=== PATIENT | male | born 1965 | race Caucasian/White ===

== ENCOUNTER 2018-02-13 14:50 | Emergency (ER) | payer OTHER ==
[2018-02-13] MEDS ORDERED: Sodium Chloride 0.9% 1,000 ML IV STA (15:19)
[2018-02-13] MEDS ORDERED: Albuterol 0.083% Inhal Sol (2.5 mg/3 mL) UD INH STA (15:19)
[2018-02-13 15:25] VITALS: O2SAT 97
--- NOTE | 2018-02-13 15:45 | ED PDOC ---
Arrival/HPI - General Chief Complaint: Dizziness/Lightheaded Time Seen by Provider: 02/13/18 15:08 Historian: Patient - History of Present Illness Narrative History of Present Illness (Text): 02/13/18 15:21 52yo male with no pmhx who present with complaint of nonproductive cough x 3weeks. states he coughs so much that he gets dizzy and blurry for the past 3weeks. Also reports general malaise. States he symptoms became worse 2days ago. +chills. Denies fever, chest pain, SOB, diaphoresis, sick contact, travel, nausea, vomiting, diarrhea, any other complaint. Past Medical History - Provider Review Nursing Documentation Reviewed: Yes - Infectious Disease Hx of Infectious Diseases: None - Psychiatric Hx Substance Use: No - Anesthesia Hx Anesthesia: No Family/Social History - Physician Review Nursing Documentation Reviewed: Yes Family/Social History: Unknown Family HX Smoking Status: Unknown If Ever Smoked Hx Alcohol Use: No Hx Substance Use: No Allergies/Home Meds Allergies/Adverse Reactions: Allergies No Known Allergies Allergy (Verified 02/13/18 15:10) Review of Systems - Physician Review All systems were reviewed & negative as marked: Yes - Review of Systems Constitutional: Fatigue Eyes: Normal ENT: Normal Respiratory: Cough. absent: SOB, Sputum, Wheezing Cardiovascular: Normal Gastrointestinal: Normal Genitourinary Male: Normal Musculoskeletal: Normal Skin: Normal Neurological: Normal Endocrine: Normal Hemo/Lymphatic: Normal Psychiatric: Normal Physical Exam Vital Signs Reviewed: Yes Vital Signs Temp Pulse Resp BP Pulse Ox 02/13/18 18:12 100.0 F H 98 H 19 97 02/13/18 17:33 100.6 F H 02/13/18 16:23 100.6 F H 106 H 18 132/74 97 02/13/18 15:24 101 F H 117 H 18 136/84 97 02/13/18 15:07 101 F H 117 H 18 136/84 98 Temperature: Febrile Pulse: Tachycardic Respiratory Rate: Normal Appearance: Positive for: Well-Appearing, Non-Toxic, Comfortable Pain Distress: None Mental Status: Positive for: Alert and Oriented X 3 - Systems Exam Head: Present: Atraumatic, Normocephalic Pupils: Present: PERRL Extroacular Muscles: Present: EOMI Conjunctiva: Present: Normal Mouth: Present: Moist Mucous Membranes Neck: Present: Normal Range of Motion Respiratory/Chest: Present: Clear to Auscultation, Good Air Exchange. No: Respiratory Distress, Accessory Muscle Use, Wheezes, Decreased Breath Sounds, Rales, Retracting, Rhonchi Cardiovascular: Present: Regular Rate and Rhythm, Normal S1, S2. No: Murmurs Abdomen: No: Tenderness, Distention, Peritoneal Signs Back: Present: Normal Inspection Upper Extremity: Present: Normal Inspection. No: Cyanosis, Edema Lower Extremity: Present: Normal Inspection. No: Edema Neurological: Present: GCS=15, CN II-XII Intact, Speech Normal, Motor Func Grossly Intact, Normal Sensory Function, Normal Cerebellar Funct, Norm Deep Tendon Reflexes, Gait Normal, Memory Normal, Normal 2Pt Descrimination Skin: Present: Warm, Dry, Normal Color. No: Rashes Psychiatric: Present: Alert, Oriented x 3, Normal Insight, Normal Concentration Medical Decision Making ED Course and Treatment: 02/13/18 19:56 52yo male who present with complaint of cough, malaise, dizziness. He was febrile and tachy on arrival. He was hydrated and antipyretics given. On re evaluation his HR and temp improved. Lab was ordered and it was unremarkable EKG NSR @ 97bpm CXR IMPRESSION: Hypoinflation. Ill-defined faint opacity within the left mid lung zone peripherally; possibly infiltrate. Mild left basilar atelectasis/infiltrate. Secondary to the chest xray finding pt was placed on Levaquin. Result was DW pt . he was advised to take antipyretics every 6hrs as needed. antitussive given. Advised to drink plenty of fluid, rest and f/u with his PMD. TRT ED for any new or worsening symptoms. - Lab Interpretations Lab Results: 02/13/18 15:50 02/13/18 15:50 Lab Results 02/13/18 17:00: Urine Color Light yellow, Urine Appearance Clear, Urine pH 6.0, Ur Specific [place] 1.015, Urine Protein Negative, Urine Glucose (UA) Negative, Urine Ketones Negative, Urine Blood Small H, Urine Nitrate Negative, Urine Bilirubin Negative, Urine Urobilinogen 0.2, Ur Leukocyte Esterase Negative, Urine RBC 0 - 2, Urine WBC Negative, Ur Epithelial Cells None, Urine Bacteria Neg 02/13/18 15:50: Sodium 140, Potassium 3.8, Chloride 103, Carbon Dioxide 24, Anion Gap 17, BUN 19, Creatinine 0.9, Est GFR ( Amer) > 60, Est GFR (Non- Af Amer) > 60, Random Glucose 102, Calcium 9.5, Magnesium 1.7, Total Bilirubin 0.8, AST 24, ALT 38, Alkaline Phosphatase 66, Lactate Dehydrogenase 427, Total Creatine Kinase 51, Troponin I < 0.01, Total Protein 7.9, Albumin 4.4, Globulin 3.4, Albumin/Globulin Ratio 1.3 02/13/18 15:50: PT 13.5 H, INR 1.18, APTT 30.3 02/13/18 15:50: WBC 5.5, RBC 5.34, Hgb 16.3, Hct 46.1, MCV 86.3, MCH 30.5, MCHC 35.4, RDW 12.3, Plt Count 209, MPV 10.9, Gran % 68.9 H, Lymph % (Auto) 18.8 L, [place] % (Auto) 11.7 H, Eos % (Auto) 0.4 L, Baso % (Auto) 0.2, Gran # 3.78, Lymph # (Auto) 1.0 L, [place] # (Auto) 0.6, Eos # (Auto) 0.0, Baso # (Auto) 0.01 - RAD Interpretation Radiology Orders: 02/13/18 15:17 CHEST TWO VIEWS (PA/LAT) [RAD] Stat - Medication Orders Current Medication Orders: Discontinued Medications Acetaminophen (Tylenol 325mg Tab) 650 mg PO STAT STA Stop: 02/13/18 17:08 Last Admin: 02/13/18 17:33 Dose: 650 mg MAR Pain/Vitals Document 02/13/18 17:33 [email or web address] (Rec: 02/13/18 17:53 [email or web address] [id number]) Vitals Temperature (97.6 F-99.6 F) 100.6 F Temperature Source Oral Albuterol Sulfate (Albuterol 0.083% Inhal [place] (2.5 Mg/3 Ml) Ud) 2.5 mg INH STAT STA Stop: 02/13/18 15:20 Last Admin: 02/13/18 16:03 Dose: 2.5 mg Sodium Chloride (Sodium Chloride 0.9%) 1,000 mls @ 999 mls/hr IV .Q1H1M STA Stop: 02/13/18 16:19 Last Admin: 02/13/18 16:03 Dose: 999 mls/hr eMAR Start Stop Document 02/13/18 16:03 [email or web address] (Rec: 02/13/18 16:03 [email or web address] [id number]) Intravenous Solution Start Date 02/13/18 Start Time 16:03 Levofloxacin (Levaquin) 500 mg PO STAT STA PRN Reason: Protocol Stop: 02/13/18 17:01 Last Admin: 02/13/18 17:53 Dose: 500 mg Promethazine HCl (Phenergan Syrup) 6.25 mg PO ONCE STA Stop: 02/13/18 17:44 Last Admin: 02/13/18 18:10 Dose: 6.25 mg Disposition/Present on Arrival - Present on Arrival Any Indicators Present on Arrival: No History of DVT/PE: No History of Uncontrolled Diabetes: No Urinary Catheter: No History of Decub. Ulcer: No History Surgical Site Infection Following: None - Disposition Have Diagnosis and Disposition been Completed?: Yes Diagnosis: Viral syndrome, Pneumonia Disposition: HOME/ ROUTINE Disposition Time: 17:40 Patient Plan: Discharge Condition: STABLE Discharge Instructions (ExitCare): Pneumonia in Adults Additional Instructions: Drink plenty of fluid and rest Take your medication Follow up with your Doctor Return to ED for any new or worsening symptoms Prescriptions: Ibuprofen [Motrin Tab] 600 mg PO Q6 #15 tab levoFLOXacin [Levaquin] 500 mg PO DAILY #6 tab Promethazine [Phenergan Syrup] 6.25 mg PO Q6 #100 ml Referrals: Jil Bradshaw MD [Medical Doctor] - Follow up with primary Forms: [employer] ([place])
--- NOTE | 2018-02-13 16:21 | RAD ---
HISTORY: cough COMPARISON: None available. TECHNIQUE: Chest PA and lateral FINDINGS: Hypoinflation. LUNGS: Ill-defined faint opacity within the left mid lung zone peripherally; possibly infiltrate. Left basilar atelectasis/infiltrate. Please note that chest x-ray has limited sensitivity for the detection of pulmonary masses. PLEURA: No significant pleural effusion identified. No definite pneumothorax . CARDIOVASCULAR: The cardiomediastinal silhouette appears within normal limits of size. OSSEOUS STRUCTURES: No acute osseous abnormality identified. VISUALIZED UPPER ABDOMEN: Mild elevation of the right hemidiaphragm. OTHER FINDINGS: None. IMPRESSION: Hypoinflation. Ill-defined faint opacity within the left mid lung zone peripherally; possibly infiltrate. Mild left basilar atelectasis/infiltrate.
[2018-02-13 16:24] VITALS: BP 132/74
[2018-02-13 16:56] LABS: BASO # 0.01 K/mm3 (0.0-2.0); BASO % 0.2 % (0.0-3.0); EOS % 0.4 % (1.5-5.0); GRAN # 3.78 (1.4-6.5); GRAN % 68.9 % (50.0-68.0); HEMOGLOBIN 16.3 g/dL (14.0-18.0); LYMPH % 18.8 % (22.0-35.0); MEAN CELL VOLUME 86.3 fl (80.0-105.0); MEAN CORPUSCULAR HEMOGLOBIN 30.5 pg (25.0-35.0); MEAN CORPUSCULAR HGB CONC 35.4 g/dl (31.0-37.0); MEAN PLATELET VOLUME 10.9 fl (7.0-11.0); MONO # 0.6 (0.1-0.6); MONO % 11.7 % (1.0-6.0); RBC 5.34 10^6/uL (3.5-6.1); RED CELL DISTRIBUTION WIDTH 12.3 % (11.5-14.5); WHITE BLOOD COUNT 5.5 10^3/ul (4.5-11.0)
[2018-02-13] MEDS ORDERED: levoFLOXacin 500 MG TAB PO STA (17:00)
[2018-02-13 17:06] LABS: INR 1.18; PARTIAL THROMBOPLASTIN TIME 30.3 Seconds (25.1-36.5); PROTHROMBIN TIME 13.5 SECONDS (9.4-12.5)
[2018-02-13 17:07] LABS: ALB/GLOB RATIO 1.3 (1.1-1.8); ALBUMIN 4.4 g/dL (3.0-4.8); ALT/SGPT 38 U/L (7-56); AST/SGOT 24 U/L (17-59); BLOOD UREA NITROGEN 19 mg/dL (7-21); CALCIUM 9.5 mg/dL (8.4-10.5); GFR NON-AFRICAN AMERICAN > 60
[2018-02-13 17:19] LABS: TROPONIN I < 0.01 ng/mL
[2018-02-13] MEDS ORDERED: Promethazine 6.25 MG/5 ML CUP PO STA (17:43)
[2018-02-13 18:04] LABS: URINE APPEARANCE CLEAR (CLEAR); URINE BILIRUBIN NEGATIVE (NEGATIVE); URINE BLOOD SMALL (NEGATIVE); URINE COLOR LIGHT YELLOW (YELLOW); URINE GLUCOSE (UA) NEGATIVE (NEGATIVE); URINE LEUKOCYTE ESTERASE NEGATIVE Leu/uL (NEGATIVE); URINE PROTEIN NEGATIVE mg/dL (<30 mg/dL); URINE UROBILINOGEN 0.2 E.U./dL (<1 E.U./dL)
[2018-02-13 18:09] LABS: URINE BACTERIA NEG (NEG); URINE RBC 0 - 2 /hpf (0-2); URINE WBC NEGATIVE /hpf (0-6)
[2018-02-13 18:13] VITALS: PULSE 98; RESP 19; TEMP 100
--- NOTE | 2018-02-14 22:11 | CARD ---
APPROVED REPORT Date of service: 02/13/2018 EKG Measurement Heart [id number] <Conclusion> Normal sinus rhythm Normal ECG
== END 2018-02-13 18:13 | disposition home or self-care (01) ==
LOC: ED 14:50
DX: J18.9 Pneumonia, unspecified organism (principal); B34.9 Viral infection, unspecified
CPT/HCPCS: 71046; 80053; 81001; 82550; 83615; 83735; 84484; 85025; 85610; 85730; 87040; 93005; 99285; J7030